=== PATIENT | male | born 1980 | race African-American/Black ===

== ENCOUNTER → 2020-06-13 | Outpatient (CLI) | payer OTHER ==
--- NOTE | 2020-06-13 13:09 | CONS ---
CONSULTATION DATE OF SERVICE: 06/13/2020 The 39-year-old gentleman has been evaluated in the sleep center for possible obstructive sleep apnea-hypopnea syndrome. HISTORY OF PRESENT ILLNESS/SLEEP-WAKE EVALUATION: According to patient, he had a sleep study about 2015 was diagnosed with sleep apnea but then his CPAP equipment did not work and he lost it. Presently, his sleep schedule from 10 p.m. until 6 a.m. on weekdays and from 11 p.m. to 6 to 7 a.m. on weekends. No problems with falling asleep, although he has TV set in bedroom. He usually sleeps on the side and stomach position and he wakes up from sleep 4 times, with 3 episodes of nocturia. Positive history of heartburn during the day and awakenings with gasping for air. No history of hypnagogic hallucinations, sleep paralysis or cataplexy. [place] Sleepiness Scale significantly increased to 12. The patient may take one nap around 12:30 afternoon. PAST MEDICAL HISTORY: Positive for hypertension, bipolar and depression, acid reflux, episodes of headaches. PAST SURGICAL HISTORY: Appendectomy. MEDICATIONS: 5 mg once a day, Lamictal 300 mg once a day, Abilify 3 mg once a day, fluticasone 100 mcg. SOCIAL HISTORY: Positive for smoking half pack a day for about 15 years. Alcohol consumption none. FAMILY HISTORY: Positive for hypercholesterolemia, arthritis. PHYSICAL EXAMINATION: GENERAL: A pleasant -[place] gentleman without distress. VITAL SIGNS: BP 144/91, HR 94, RR 16, height 5 feet 11-3/4 inches, weight 294, BMI 40.8, temperature 98.3, oxygen saturation at room air 94%. HEENT: PERRLA, EOMI. Oropharynx extremely low position of soft palate. Mallampati 4. NECK: in circumference. LUNGS: Clear to percussion and to auscultation. Good air exchange. No wheezing or rhonchi. HEART: S1, S2 regular. No murmurs, gallops, or rubs. ABDOMEN: Obese. EXTREMITIES: No clubbing or cyanosis. FRENCH BINDING FOLDER: Awake, alert, and oriented X3. Cranial nerves 2 to 7 intact. There is no fasciculation or atrophy. noted. No focal deficits observed. IMPRESSION: 1. Witnessed episodes of stopped breathing during the sleep, extremely low position of soft palate, Mallampati 4, wide neck, sleepiness, obstructive sleep apnea-hypopnea syndrome. 2. Hypertension. 3. Headaches. 4. History of bipolar. 5. History of depression. 6. Acid reflux. 7. Status post appendectomy. PLAN: 1. Polysomnography for evaluation of patient's breathing during sleep. 2. CPAP/BiPAP titration if sleep study confirms obstructive sleep apnea-hypopnea syndrome. 3. Preferable position during sleep on the side. 4. No driving if patient feels any sleepiness. 5. I will see patient for follow up visit to explain results of testing and following plan. Thank you very much for referring this patient for consultation. Sincerely, Chris Cyr MD, PhD, FAASM Diplomat of [place] [employer] [place] [employer] Etymology Teacher of [facility] [place] MMERIKAL / MAGUIN: [id number] /
== END | disposition home or self-care (01) ==
LOC: SLEEP 11:39
PROVIDERS: ATTEND Internal Medicine
DX: G47.33 Obstructive sleep apnea (adult) (pediatric) (principal); I10 Essential (primary) hypertension; R51.9 Headache, unspecified; K21.9 Gastro-esophageal reflux disease without esophagitis; Z90.49 Acquired absence of other specified parts of digestive tract; Z79.899 Other long term (current) drug therapy; Z86.59 Personal history of other mental and behavioral disorders
CPT/HCPCS: 99211

== ENCOUNTER → 2020-10-10 | Outpatient (CLI) | payer OTHER ==
--- NOTE | 2020-10-11 05:53 | SFUN ---
SLEEP CENTER FOLLOW UP NOTE DATE OF SERVICE: 10/10/2020 INTERVAL HISTORY: This 39-year-old gentleman has been followed in the Sleep Center for treatment of obstructive sleep apnea-hypopnea syndrome. Recently, the patient had diagnostic sleep study which showed extremely bad sleep apnea and then he had CPAP and BiPAP titration and I discussed results of sleep study with the patient in detail. Subsequently, he received BiPAP equipment at his first visit after he was started on treatment with BiPAP. Patient able to use BiPAP equipment practically every night. He is using full-face mask. Sometimes needs to adjust the mask to avoid leak. [place] Sleepiness Scale today is 7. I checked his BiPAP unit. Pressure 23/19, usage 26 out of 30 nights for more than 4 hours, average 6.4 hours per night. Leak is 18 L/minute which is borderline. Apnea- hypopnea index is only 1.8 and on diagnostic sleep study it was 96.6. The patient sleeps better with the machine and he feels definitely better during the day. MEDICATIONS: Lamictal, Norvasc, Abilify. PHYSICAL EXAMINATION: GENERAL: Patient in no distress. VITAL SIGNS: BP 128/69, HR 98, RR 12, weight 286.6, temperature 97.6, oxygen saturation 95%. HEENT: PERRLA, EOMI, evaluation of oropharynx showed tongue protrudes midline. Low position of soft palate. NECK: Supple, no JVD. Thyroid is not palpable. LUNGS: Clear to percussion and to auscultation. Good air exchange. No wheezing or rhonchi. HEART: S1, S2 regular. No murmurs, gallops, or rubs. ABDOMEN: Soft and nontender. Bowel sounds are present. No organomegaly appreciated. Obese. EXTREMITIES: No clubbing or cyanosis. [employer] SALES REPRESENTATIVE: Awake, alert, and oriented X3. Cranial nerves 2 to 7 intact. There is no fasciculation or atrophy. noted. No focal deficits observed. IMPRESSION: 1. Extremely severe obstructive sleep apnea-hypopnea syndrome; apnea-hypopnea index 96.6 with oxygen desaturation to 73%, on control with BiPAP at quite high pressure 23/19 cm of water. Patient demonstrated good compliance with treatment, normal respirations on BiPAP, benefitting from treatment. 2. Obesity. 3. Hypertension. 4. History of bipolar. 5. History of headaches. 6. History of depression. 7. Acid reflux. 8. Status post appendectomy. PLAN: 1. Patient will continue to use PAP equipment every night for the whole night. 2. Sleep hygiene with regular time in bed for at least 7-1/2 to 8 hours. 3. Precautions related to driving. No driving if feeling sleepiness. 4. I will maintain all necessary prescription for PAP supplies including mask, tube, filters. 5. Watching weight. 6. Follow-up visit in 6 months or earlier if patient has any problems. 7. Additionally patient will use a chinstrap. Prescription was written. Thank you very much for allowing me to participate in the management of your patient. Sincerely, Chris Cyr MD, PhD, FAASM Diplomat of [place] [employer] [employer] Handling Tech of [facility] [place] MMERIKAL / STANISLAV: [id number] /
== END | disposition home or self-care (01) ==
LOC: SLEEP 14:44
PROVIDERS: ATTEND Internal Medicine
DX: G47.33 Obstructive sleep apnea (adult) (pediatric) (principal); I10 Essential (primary) hypertension; K21.9 Gastro-esophageal reflux disease without esophagitis; F31.9 Bipolar disorder, unspecified; E66.9 Obesity, unspecified; Z86.69 Personal history of other diseases of the nervous system and sense organs; Z90.89 Acquired absence of other organs; Z79.899 Other long term (current) drug therapy

== ENCOUNTER → 2021-04-17 | Outpatient (CLI) | payer OTHER ==
--- NOTE | 2021-04-17 19:13 | SFUN ---
SLEEP CENTER FOLLOW UP NOTE DATE OF SERVICE: 04/17/2021. 40-year-old gentleman has been followed in Sleep Center for treatment of obstructive sleep apnea-hypopnea syndrome. Patient continued to use his BiPAP equipment sometimes feel that his mouth is dry. Otherwise feels better while using his BiPAP therapy. I checked his BiPAP machine. Maximal inspiratory pressure 23. Minimal expiratory pressure 19 with a pressure support of 4. Usage is 22/30 nights. Average 5.4 hours per night. Leak is 31 L/minute. Apnea-hypopnea index is 3.4, which is in normal range. [place] Sleepiness Scale is 6. CURRENT MEDICATIONS: Lamictal 300 mg once a day, Norvasc 10 mg once a day, Latuda 60 mg once a day. PHYSICAL EXAMINATION: GENERAL: Patient in no distress. BP 126/73, HR 95, RR 15, height 5 feet 11 inches, weight 285.4 pounds, temperature 97.5, body mass index 39.7, oxygen saturation at room air 92%. Oropharynx: Low position of soft palate. NECK: Supple, no JVD. Thyroid is not palpable. LUNGS: Clear to percussion and to auscultation. Good air exchange. No wheezing or rhonchi. HEART: S1, S2 regular. No murmurs, gallops, or rubs. ABDOMEN: Obese. Soft and nontender. Bowel sounds are present. No organomegaly appreciated. EXTREMITIES: No clubbing or cyanosis. OIL GAS AND PIPE TESTER: Awake, alert, and oriented X3. Cranial nerves 2 to 7 intact. There is no fasciculation or atrophy. noted. No focal deficits observed. IMPRESSION: 1. Extremely severe obstructive sleep apnea-hypopnea syndrome apnea-hypopnea index 96.6 with oxygen desaturation to 73%, normal respiration on BiPAP with a pressure 23/19. Borderline compliance with treatment, benefitting from treatment. The patient complains of dryness in the mouth. 2. Obesity. 3. Hypertension. 4. History of bipolar disorder. 5. History of headaches. 6. History of depression. 7. Acid reflux. 8. Status post appendectomy. PLAN: 1. I explained to the patient how to adjust humidity level in the mask and temperature in the tube. I adjusted level of heat from 4-6 cm of water. Previously, it was on automatic regimen and I changed to manual regimen. 2. Patient will continue to use PAP equipment every night for the whole night. 3. Sleep hygiene with regular time in bed for at least 7-1/2 to 8 hours. 4. Precautions related to driving. No driving if feeling sleepiness. 5. I will maintain all necessary prescription for PAP supplies including mask, tube, filters. 6. Watching weight. 7. Follow-up visit in 6 months or earlier if patient has any problems. 8. Followup visit in one year or earlier if patient has any problems. Thank you very much for allowing me to participate in the management of your patient, Sincerely, Chris Cyr MD, PhD, FAASM Diplomat of [place] [employer] Sleep Medicine Board of [place] [employer] Drywall Finisher Foreman of [facility] [place] MMOVIDIO / STANISLAV: [phone] /
== END ==
LOC: SLEEP 14:28
PROVIDERS: ATTEND Internal Medicine
DX: G47.33 Obstructive sleep apnea (adult) (pediatric) (principal); G47.36 Sleep related hypoventilation in conditions classified elsewhere; E66.9 Obesity, unspecified; I10 Essential (primary) hypertension; K21.9 Gastro-esophageal reflux disease without esophagitis; Z90.49 Acquired absence of other specified parts of digestive tract; F31.9 Bipolar disorder, unspecified; Z99.89 Dependence on other enabling machines and devices; Z79.899 Other long term (current) drug therapy; Z68.39 Body mass index [BMI] 39.0-39.9, adult

== ENCOUNTER 2021-11-13 14:41 | Emergency (ER) | payer OTHER ==
[2021-11-13] MEDS ORDERED: ORPHENADRINE 30 MG/ML 2 ML VIAL IM STA (16:08)
[2021-11-13] MEDS ORDERED: KETOROLAC 15 MG/ML 1 ML VIAL IM STA (16:08)
[2021-11-13] MEDS ORDERED: DEXAMETHASONE SOD PHOSPHATE 10 MG/ML 1 ML VIAL IM STA (16:08)
--- NOTE | 2021-11-13 16:16 | ED ---
Back Pain HPI - General Chief Complaint: Back Pain/Injury Stated Complaint: back spasms Time Seen by Provider: 11/13/21 16:04 Source: patient Limitations: no limitations - History of Present Illness Initial Comments: Patient is a 40-year-old male presenting with chief complaint of back pain. 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 He states that this afternoon while getting out of his truck he felt sudden onset spasming in the lower back. Patient states that anytime he tries to stand straight up the spasming begins again, he states that it brings him to his knee sometimes because of the intensity of the pain. He denies any loss of bowel or bladder control or saddle paresthesia. He denies any lower extremity weakness, numbness, tingling. No previous injury or trauma. States that he took Motrin at home without much relief. Denies any abdominal pain, chest pain, shortness of breath, fever, chills, nausea, vomiting, dysuria, hematuria, urgency, frequency, flank pain. - Related Data Previous Rx's Medication Instructions Recorded Cyclobenzaprine [Flexeril] 10 mg PO TID PRN #20 tab 11/13/21 HYDROcodone/APAP 7.5-325MG [Ramona 1 tab PO Q6HR PRN 3 Days #12 tab 11/13/21 7.5-325] Allergies Allergy/AdvReac Type Severity Reaction Status Date / Time No Known Allergies Allergy Verified 11/13/21 15:19 Review of Systems ROS Statement: Those systems with pertinent positive or pertinent negative responses have been documented in the HPI. ROS Other: All systems not noted in ROS Statement are negative. Past Medical History Past Medical History: Hypertension History of Any Multi-Drug Resistant Organisms: None Reported Past Surgical History: Appendectomy Past Psychological History: Bipolar, Depression Smoking Status: Current every day smoker Past Alcohol Use History: Occasional Past Drug Use History: Marijuana General Exam Limitations: no limitations General appearance: alert, in no apparent distress Head exam: Present: atraumatic, normocephalic, normal inspection Eye exam: Present: normal appearance, EOMI. Absent: scleral icterus, periorbital swelling Neck exam: Present: normal inspection Back exam: Present: normal inspection, muscle spasm. Absent: vertebral tenderness Neurological exam: Present: alert, oriented X3, CN II-XII intact Psychiatric exam: Present: normal affect, normal mood Skin exam: Present: warm, dry, intact, normal color. Absent: rash Course Vital Signs 11/13/21 11/13/21 15:16 18:04 Temperature 98 F 97.6 F Pulse Rate 70 61 Respiratory 16 20 Rate Blood Pressure 124/71 122/73 O2 Sat by Pulse 96 99 Oximetry Medical Decision Making - Medical Decision Making Patient is a 40-year-old male presenting with chief complaint of lower back pain. He states that when getting out of his truck today, his lower back began spasming. No red flag symptoms. On examination there is limited range of motion secondary to pain. No radiculopathy. Patient is given Toradol, Norflex, Decadron, Ramona. He reports improvement in symptoms. He appears stable for discharge with outpatient follow-up at this time. I educated him on supportive treatment. He is provided with a prescription for cyclobenzaprine and a three- day supply of Ramona 7.5. Report back to ER with any new or worsening symptoms. Follow-up with PCP. I discussed return parameters and answered all questions. Patient conveyed verbal understanding and agreed to the plan. My attending is Dr. Vargas. Disposition Clinical Impression: Strain of lumbar region Disposition: HOME SELF-CARE Condition: Good Instructions (If sedation given, give patient instructions): Acute Low Back Pain (ED), Lower Back Exercises (ED) Additional Instructions: Follow-up with PCP in one to 2 days. Report back to ER if any new or worsening symptoms. Take medication as prescribed. Take Motrin and Tylenol as needed for pain control. The prescribed medication may cause drowsiness, do not take before driving or operating heavy machinery. Prescriptions: Cyclobenzaprine [Flexeril] 10 mg PO TID PRN #20 tab PRN Reason: Spasms HYDROcodone/APAP 7.5-325MG [Ramona 7.5-325] 1 tab PO Q6HR PRN 3 Days #12 tab PRN Reason: Pain Is patient prescribed a controlled substance at d/c from ED?: No Referrals: Benedict Williamson MD [Primary Care Provider] - 1-2 days Time of Disposition: 17:52
[2021-11-13] MEDS ORDERED: HYDROcodone/APAP 7.5-325MG 1 EACH TAB PO ONE (17:05)
--- NOTE | 2021-11-13 17:41 | XR ---
EXAMINATION TYPE: XR lumbar spine 2 or 3V DATE OF EXAM: 11/13/2021 COMPARISON: NONE HISTORY: Back pain TECHNIQUE: 3 views FINDINGS: The vertebra have normal alignment. Posterior element are intact. No compression fracture. Sacroiliac joints are intact. IMPRESSION: Negative lumbar spine exam. No fracture.
[2021-11-13 18:10] VITALS: BP 122/73; PULSE 61; RESP 20; TEMP 97.6
== END 2021-11-13 18:10 | disposition home or self-care (01) ==
LOC: EC 14:41
DX: S39.012A Strain of muscle, fascia and tendon of lower back, initial encounter (principal); I10 Essential (primary) hypertension; F17.200 Nicotine dependence, unspecified, uncomplicated; W17.89XA Other fall from one level to another, initial encounter
CPT/HCPCS: 72100; 99283; 96372; J1100; J2360; J1885